=== PATIENT | female | born 1970 | race American Indian/Alaskan Native ===

== ENCOUNTER 2016-12-02 08:17 | Emergency (ER) | payer OTHER ==
--- NOTE | 2016-12-02 08:55 | Emergency Department Report ---
HPI - General Chief Complaint: Arrhythmia/Palpitations Time Seen by Provider: 12/02/16 08:43 - HPI HPI: Room 21 The patient is a 46-year-old female presenting with a chief complaint of palpitations. The patient had a history of PSVT states while driving this morning at 08:02 she felt a discomfort in her throat described as feeling like she "swallowed a ball of air." The patient states she's had this sensation before with previous episodes of SVT. The patient states she then felt as though her heart was racing and she decided to come to the emergency department. Patient denies chest pain, shortness of breath or nausea/vomiting. In the ED she had an EKG which revealed SVT at 172 bpm. Upon my entering the room the patient has spontaneously converted to what appeared to be normal sinus rhythm on the monitor. The patient now complains of feeling tired. Of note the patient states she had an EP study by Dr. Lomax approximately 1 month ago and states it was recommended that she receive a cardiac ablation. The patient states she has been waiting to hear back from the carton inspector to schedule the appointment but has not as of yet. Location: Chest Duration: [see above] Quality: "Swallowed a ball of air" Severity: Moderate Modifying factors: [see above] Context: [see above] Mode of transportation: Unknown ED Past Medical Hx - Past Medical History Previous Medical History?: Yes Hx Hypertension: Yes Additional medical history: PSVT - Surgical History Past Surgical History?: Yes Additional Surgical History: hysterectomy - Family History Family history: no significant - Social History Smoking Status: Never Smoker Substance Use Type: None (denies illicit drug use), Alcohol (occasional), Non Opiate Pain, Prescribed - Medications Home Medications: Home Medications Medication Instructions Recorded Confirmed Last Taken Type Estradiol [Minivelle] 12/02/16 11/29/16 History Losartan/Hydrochlorothiazide 12/02/16 12/01/16 History [Losartan-Hctz 50-12.5 mg Tab] Verapamil HCl [Verapamil] 80 mg PO BID #90 tablet 12/02/16 Unknown Rx ED Review of Systems ROS: Stated complaint: HEART PALPITATIONS Other details as noted in HPI Comment: All other systems reviewed and negative Constitutional: denies: chills, fever Eyes: denies: eye pain, eye discharge, vision change ENT: denies: ear pain, throat pain Respiratory: denies: cough, shortness of breath, wheezing Cardiovascular: palpitations. denies: chest pain Endocrine: no symptoms reported Gastrointestinal: denies: abdominal pain, nausea, diarrhea Genitourinary: denies: urgency, dysuria, discharge Musculoskeletal: denies: back pain, joint swelling, arthralgia Skin: denies: rash, lesions Neurological: denies: headache, weakness, paresthesias Psychiatric: denies: anxiety, depression Hematological/Lymphatic: denies: easy bleeding, easy bruising Physical Exam - Physical Exam Vital Signs: Vital Signs 12/02/16 08:29 Temperature 98.5 F Pulse Rate 192 H Respiratory 20 Rate Blood Pressure 155/113 O2 Sat by Pulse 100 Oximetry Physical Exam: GENERAL: The patient is well-developed well-nourished female lying on stretcher not appearing to be in acute distress. [] HEENT: Normocephalic. Atraumatic. Extraocular motions are intact. Patient has moist mucous membranes. NECK: Supple. Trachea midline CHEST/LUNGS: Clear to auscultation. There is no respiratory distress noted. HEART/CARDIOVASCULAR: Regular. There is no tachycardia. There is no gallop rub or murmur. ABDOMEN: Abdomen is soft, nontender. Patient has normal bowel sounds. There is no abdominal distention. SKIN: There is no rash. There is no edema. There is no diaphoresis. NEURO: The patient is awake, alert, and oriented. The patient is cooperative. The patient has normal speech MUSCULOSKELETAL: There is no evidence of acute injury. ED Course Vital Signs 12/02/16 08:29 Temperature 98.5 F Pulse Rate 192 H Respiratory 20 Rate Blood Pressure 155/113 O2 Sat by Pulse 100 Oximetry - Consultations Consultation #1: 12/02/16 10:26 Cardiology paged- case discussed 11:01 Case discussed with cardiology-recommends initiating verapamil 80 mg twice a day. Patient may be discharged home 12/02/16 11:01 ED Medical Decision Making - Lab Data Result diagrams: 12/02/16 08:53 12/02/16 08:53 Laboratory Tests 12/02/16 12/02/16 12/02/16 08:53 08:53 08:53 WBC 8.1 RBC 4.75 Hgb 14.8 H Hct 43.7 H MCV 92 MCH 31 MCHC 34 RDW 12.9 L Plt Count 417 Lymph % (Auto) 23.4 [place] % (Auto) 4.5 Eos % (Auto) 2.0 Baso % (Auto) 1.0 Lymph # 1.9 [place] # 0.4 Eos # 0.2 Baso # 0.1 Seg Neutrophils % 69.1 Seg Neutrophils # 5.6 Sodium 137 Potassium 3.9 Chloride 98.6 Carbon Dioxide 25 Anion Gap 17 BUN 20 H Creatinine 1.1 Estimated GFR > 60 BUN/Creatinine Ratio 18.18 Glucose 110 H Calcium 9.0 Magnesium 2.1 Total Creatine Kinase 101 CK-MB (CK-2) < 1.0 CK-MB (CK-2) Rel Index 0.9 Troponin T < 0.010 TSH 1.980 Free T4 1.09 - EKG Data -: EKG Interpreted by Me Rate: tachycardia - EKG Data When compared to previous EKG there are: changes noted 12/02/16 08:57 EKG #1 reveals SVT at 172 bpm EKG #2 reveals normal sinus rhythm at 88 bpm. T-wave inversions are present in leads 3, aVF and V3. 12/02/16 09:09 - Radiology Data Radiology results: image reviewed (chest x-ray) interpreted by me: Chest x-ray- no focal infiltrates, no pneumothorax - Differential Diagnosis PSVT Critical care attestation.: If time is entered above; I have spent that time in minutes in the direct care of this critically ill patient, excluding procedure time. ED Disposition Clinical Impression: PSVT (paroxysmal supraventricular tachycardia) Disposition: DISCHARGED TO HOME OR SELFCARE Is pt being admited?: No Does the pt Need Aspirin: No Condition: Stable Instructions: Supraventricular Tachycardia (ED) Additional Instructions: Return to the emergency department immediately should you develop worsening symptoms, fever, inability to tolerate food or liquid or any other concerns. Prescriptions: Verapamil HCl [Verapamil] 80 mg PO BID #90 tablet Referrals: PRIMARY CARE, [Primary Care Provider] - 3-5 Days ERICK LOMAX MD [Staff Physician] - 3-5 Days Time of Disposition: 11:03
[2016-12-02 09:32] LABS: Anion Gap 17 mmol/L; BUN/Creatinine Ratio 18.18; Blood Urea Nitrogen 20 mg/dL (7-17); Carbon Dioxide 25 mmol/L (22-30); Chloride 98.6 mmol/L (98-107); Creatine Kinase 101 units/L (30-135); Glucose 110 mg/dL (65-100); Magnesium 2.1 mg/dL (1.7-2.3); Potassium 3.9 mmol/L (3.6-5.0); Sodium 137 mmol/L (137-145)
[2016-12-02 09:41] LABS: Creatine Kinase MB < 1.0 ng/mL (0.0-4.0)
--- NOTE | 2016-12-02 09:43 | XRay Report ---
PORTABLE CHEST INDICATION: Palpitations. COMPARISON: 09/10/2016 FINDINGS: Portable, frontal chest radiograph again demonstrates normal cardiomediastinal silhouette. No pleural effusions or CHF, though lung markings slightly more prominent centrally and towards the bases. Slight aortic knob calcifications. EKG leads. Stable bones. CONCLUSION: No significant acute chest process with slightly prominent lung markings, as described. Thank you for the opportunity to participate in this patient's care.
[2016-12-02 09:48] LABS: Hematocrit 43.7 % (30.3-42.9); Hemoglobin 14.8 gm/dl (10.1-14.3); Mean Corpuscular HGB Conc 34 % (30-34); Mean Corpuscular Hemoglobin 31 pg (28-32); Mean Corpuscular Volume 92 fl (79-97); Platelet Count 417 K/mm3 (140-440); Red Blood Count 4.75 M/mm3 (3.65-5.03); Red Cell Distribution Width 12.9 % (13.2-15.2); White Blood Count 8.1 K/mm3 (4.5-11.0)
--- NOTE | 2016-12-02 11:02 | Admit Criteria Form ---
Admission Criteria Documentation: SUPRAVENTRICULAR ARRHYTHMIAS Clinical Indications for Admission to Inpatient Care (Place 'X' for any and all applicable criteria): Admission is indicated by ANY ONE of the following (1)(2): [ ]I. Arrhythmia causing significant symptoms or findings as indicated by ANY ONE of the following: [ ]a) Chest pain [ ]b) Myocardial ischemia [ ]c) Altered mental status [ ]d) Dizziness, weakness, or light-headedness [ ]e) Dyspnea or hypoxemia [ ]f) Heart failure (eg, pulmonary edema)(11) [ ]II. Initiation of antiarrhythmic drug therapy is needed in patient at high risk of adverse events as indicated by ANY ONE of the following: [ ]a) Significant structural heart disease (eg, aortic stenosis, reduced ejection fraction, cardiomyopathy, congenital heart disease) [ ]b) Underlying sinus node or atrioventricular conduction disturbances [ ]c) Prolonged QT interval [ ]d) Need for treatment with antiarrhythmic that have significant proarrhythmic potential ( procainamide) [ ]e) Patient whose sinus rhythm has not been observed on ECG [ X]III. Inpatient admission required rather than observation care because of ANY ONE of the following: [ ]a) Syncope [ ]b) Patient has automatic implanted cardioverter-defibrillator that is repeatedly firing, malfunctioning, or in need of immediate adjustment of settings beyond scope of ambulatory or observation care. [ ]c) Hemodynamic instability that is severe or persistent [ ]d) Unstable cardiac conduction defects indicated by ANY ONE of the following(19)(20)(21): [ ]a) Type II second-degree atrioventricular block [ ]b) Third-degree atrioventricular block [ ]C) New-onset left bundle branch block with suspected myocardial ischemia [ ]e) Severe electrolyte abnormalities requiring inpatient care [ ]f) Continuous intravenous infusion of anticoagulation, platelet inhibitor, vasoactive, or antiarrhythmic medication(14) [ ]g) Pulmonary artery catheter monitoring [ ]h) Repeat cardioversion necessary [ X]i) Other condition, treatment or monitoring requiring inpatient admission [ ]IV. Underlying medical condition that necessitates inpatient care (eg, thyrotoxicosis, severe acidosis) Extended stay beyond goal length of stay may be needed for(1)(17)(18): [ ]a) Persistent hemodynamic instability or continued severe arrhythmia [ ]b) Continued monitoring during initiation of certain medications (eg, some antiarrhythmics)(17)(19) [ ]c) Precipitating cause requires ongoing inpatient care (eg, severe electrolyte abnormality, systemic infection, acidosis) [ ]d) Unstable comorbidities The original [facility] content created by [facility] has been revised. The portions of the content which have been revised are identified through the use of italic text or in bold, and [facility] has neither reviewed nor approved the modified material. All other unmodified content is copyright [facility]. Please see references footnoted in the original [facility] edition 2016
--- NOTE | 2016-12-02 11:06 | Consultation ---
History of Present Illness Consult date: 12/02/16 Requesting physician: JOSE GAITAN Consult reason: other (SVT) History of present illness: The patient is a 46 year old female who is followed by Dr. Hossein Rodriguez in the office with a history of paroxysmal SVT, hypertension who was driving to work this morning when she developed sudden onset palpitations. No chest pain or shortness of breath. EKG revealed SVT with HR 172. She converted to sinus rhythm spontaneously shortly after she arrived. Labs unremarkable. She states that she has seen Dr. Lomax in our office who has recommended an EP study and ablation but it has not yet been scheduled. Past History Past Medical History: hypertension, other (paroxysmal SVT) Past Surgical History: hysterectomy Social history: denies: smoking, alcohol abuse, prescription drug abuse, IV drug use Family history: no significant family history Medications and Allergies Allergies Allergy/AdvReac Type Severity Reaction Status Date / Time No Known Allergies Allergy Verified 09/10/16 07:50 Home Medications Medication Instructions Recorded Confirmed Last Taken Type Estradiol [Minivelle] 12/02/16 11/29/16 History Losartan/Hydrochlorothiazide 12/02/16 12/01/16 History [Losartan-Hctz 50-12.5 mg Tab] Verapamil HCl [Verapamil] 80 mg PO BID #90 tablet 12/02/16 Unknown Rx Review of Systems Constitutional: no fever, no chills Ears, nose, mouth and throat: no nasal congestion, no nasal discharge, no sinus pressure Cardiovascular: palpitations, no chest pain, no shortness of breath, no dyspnea on exertion Respiratory: no cough, no shortness of breath, no dyspnea on exertion, no congestion, no wheezing Gastrointestinal: no abdominal pain, no nausea, no vomiting, no diarrhea Genitourinary Female: no dysuria, no urgency Musculoskeletal: no neck stiffness, no neck pain, no myalgias Integumentary: no rash, no pruritis Neurological: no parathesias, no numbness, no tingling, no headaches Endocrine: no cold intolerance, no heat intolerance Hematologic/Lymphatic: no easy bruising, no easy bleeding Allergic/Immunologic: no urticaria, no wheezing Physical Examination Vital Signs Temp Pulse Resp BP Pulse Ox 98.5 F 192 H 20 155/113 100 12/02/16 08:29 12/02/16 08:29 12/02/16 08:29 12/02/16 08:29 12/02/16 08:29 General appearance: no acute distress HEENT: Positive: Normocephaly, Mucus Membranes Moist Neck: Positive: neck supple, trachea midline Cardiac: Positive: Reg Rate and Rhythm, S1/S2 Lungs: Positive: clear to auscultation Neuro: Positive: Grossly Intact Abdomen: Positive: Soft, Active Bowel Sounds. Negative: Tender Skin: Positive: Clear. Negative: Rash Extremities: Present: normal. Absent: edema Results 12/02/16 08:53 12/02/16 08:53 Cardiac Enzymes 12/02/16 Range/Units 08:53 CK-MB (CK-2) < 1.0 (0.0-4.0) ng/mL CBC 12/02/16 Range/Units 08:53 WBC 8.1 (4.5-11.0) K/mm3 RBC 4.75 (3.65-5.03) M/mm3 Hgb 14.8 H (10.1-14.3) gm/dl Hct 43.7 H (30.3-42.9) % Plt Count 417 (140-440) K/mm3 Lymph # 1.9 (1.2-5.4) K/mm3 [place] # 0.4 (0.0-0.8) K/mm3 Eos # 0.2 (0.0-0.4) K/mm3 Baso # 0.1 (0.0-0.1) K/mm3 Comprehensive Metabolic Panel 12/02/16 Range/Units 08:53 Sodium 137 (137-145) mmol/L Potassium 3.9 (3.6-5.0) mmol/L Chloride 98.6 (98-107) mmol/L Carbon Dioxide 25 (22-30) mmol/L BUN 20 H (7-17) mg/dL Creatinine 1.1 (0.7-1.2) mg/dL Glucose 110 H (65-100) mg/dL Calcium 9.0 (8.4-10.2) mg/dL - Imaging and Cardiology Echo: report reviewed (09/2016: EF 55%) EKG: image reviewed EKG interpretations - Telemetry EKG Rhythm: Sinus Rhythm - EKG Other supraventricular dysrythmias: atypical AV lukas (AVNRT) Assessment and Plan 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 Patient will be scheduled for EP study/ablation by Dr. Lomax as an outpatient. The patient has been seen in conjunction with Dr. Graff who agrees with the assessment and plan of care.
[2016-12-02 11:18] VITALS: BP 120/84
== END 2016-12-02 11:18 | disposition home or self-care (01) ==
LOC: ED 08:17
DX: I47.1 Supraventricular tachycardia (principal); I10 Essential (primary) hypertension; Z90.710 Acquired absence of both cervix and uterus
CPT/HCPCS: 36415; 71010; 80048; 82550; 82553; 83735; 84439; 84443; 84484; 85025; 93005; 93010